=== PATIENT | female | born 1990 | race Two or more races ===

== ENCOUNTER 2025-04-24 14:12 | Emergency (ER) | payer SELFPAY ==
[~2025-04-24] VITALS: Ht 167.6 cm; Wt 65.8 kg
[2025-04-24] MEDS ORDERED: IBUPROFEN 600 MG TABLET ONE (15:05)
[2025-04-24] MEDS: IBUPROFEN 600 MG TABLET PO ONE (15:12)
[2025-04-24 16:17] LABS: PREGNANCY TEST URINE QUAL NEGATIVE (NEGATIVE)
[2025-04-24 17:00] VITALS: BP 137/83; TEMP 98.5; O2SAT 99
== END 2025-04-24 17:03 | disposition left against medical advice (07) ==
LOC: ER 14:12
DX: R51.9 Headache, unspecified (principal); M54.2 Cervicalgia; R25.1 Tremor, unspecified; Z90.49 Acquired absence of other specified parts of digestive tract; V43.52XA Car driver injured in collision with other type car in traffic accident, initial encounter; Y93.89 Activity, other specified; Y92.488 Other paved roadways as the place of occurrence of the external cause; Y99.8 Other external cause status
CPT/HCPCS: 84703-TC